=== PATIENT | male | born 1975 | race Caucasian/White ===

== ENCOUNTER 2020-06-25 12:02 | Emergency (ER) | payer MEDICARE ==
[~2020-06-25] VITALS: Ht 180.3 cm; Wt 86.4 kg
[2020-06-25 12:15] VITALS: Ht 180.3 cm; Wt 86.4 kg
[2020-06-25 14:28] VITALS: BP 121/82
[2020-06-25] MEDS ORDERED: AUGMENTIN 875-11 TAB PO (14:36)
[2020-06-25] MEDS ORDERED: NAPROSYN500 MG PO (14:36)
[2020-06-25] MEDS ORDERED: HYDROCODON-ACE1 EA10 PO (14:36)
--- NOTE | 2020-06-26 07:40 | PRO ---
PATIENT:RADHIKA JEFFREY MEDICAL RECORD: [id number] : 79 LOCATION:[facility] ADMISSION DATE: 06/25/20 PROCEDURE PERFORMED BY: BOLA PAULINO DO DATE OF PROCEDURE: 06/25/2020 PROCEDURE PERFORMED: Right thumb laceration repair with nail bed repair. PREOPERATIVE DIAGNOSIS: Open fracture of the distal phalanx of the right thumb, saw injury. POSTOPERATIVE DIAGNOSIS: Open fracture of the distal phalanx of the right thumb, saw injury. INDICATIONS: Mr. Jeffrey is a 45-year-old male who was using a saw and went through and cut the distal tip of his thumb on the radial side. It has pretty much split down the middle. He did have sensation to the flap and the blood supply, so I told him we could probably try to save it, but his nail might grew back funny. He would be at risk for infection, bleeding, damage to nerves and vessels. He was okay with all that and we did a digital block after cleaning the base of the thumb with alcohol with 1% lidocaine plain and used approximately 2 mL in each side and then numbed up the tip again with another mL, a pump starting. I then prepped the thumb with Betadine and then removed the nail, repaired the nail bed as best I could with a 5-0 chromic in simple fashion. I then fixed the laceration part that was not through the nail bed with 4-0 nylon in a simple and horizontal mattress fashion and then replaced the nail and sutured in place with a nylon and then irrigated it very well and then dressed it with Adaptic, 4 x 4s, and stocking up finger gauze. He tolerated the procedure well. He will be sent home on Augmentin for 10 days. Leave the dressing on and follow up in clinic in 1 week. Again, he tolerated the procedure well. TRANSINT:[id number] Voice Confirmation ID: [id number] DOCUMENT ID: [id number] BOLA PAULINO, at 0740 CC: [id number] DICTATION DATE: 06/25/20 1634 WANT AD SUPERVISOR: 06/26/20 0536 DEP ER 06/25/20 [id number] [place] [address]
== END 2020-06-25 14:54 | disposition home or self-care (01) ==
LOC: D.ER 12:02
DX: S62.521B Displaced fracture of distal phalanx of right thumb, initial encounter for open fracture (principal); S69.92XA Unspecified injury of left wrist, hand and finger(s), initial encounter; W29.8XXA Contact with other powered hand tools and household machinery, initial encounter; Y93.9 Activity, unspecified; Y92.9 Unspecified place or not applicable